=== PATIENT | male | born 1995 | race Caucasian/White ===

== ENCOUNTER 2016-10-22 15:46 | Emergency (ER) | payer SELFPAY ==
[2016-10-22 16:07] VITALS: BP 116/64; PULSE 66; RESP 14; TEMP 98.1; O2SAT 97
--- NOTE | 2016-10-22 16:46 | UCPHY ---
H & P Time Seen by Provider: 10/22/16 16:17 Patient Type: Established HPI/ROS: CHIEF COMPLAINT: Rash HISTORY OF PRESENT ILLNESS: 21-year-old male notes that over the last 3-4 days he has been developing a rash which started on his trunk and upper extremities. It is not itchy. He has not had shortness of breath, hives, nausea, fevers, or vomiting. He has not had a headache. He does not have a history of any prior skin conditions. He has been using [id number] lotion. He also reports he has been ill with some nasal congestion and upper respiratory infection for about 10 days. No fevers. REVIEW OF SYSTEMS: Aside from elements discussed in the HPI, a comprehensive 10-point review of systems was reviewed and is negative. PAST MEDICAL HISTORY: Tonsillectomy. Up-to-date on his immunizations. SOCIAL HISTORY: Nonsmoker. VITAL SIGNS: see nurse's notes. GENERAL: Well-developed, well-nourished, in no acute distress. HEENT: Normal, no discharge or icterus, moist mucous membranes. No eyelid swelling. No uvular swelling. No lip swelling. Neck: supple, FROM. LUNGS: Clear to auscultation bilaterally, no wheezes, rhonchi or rales. CARDIAC: Regular rate and rhythm, no rubs, murmurs or gallops. ABDOMEN: Soft, nontender, nondistended, bowel sounds normal. EXTREMITIES: No edema, FROM. NEURO: Alert and oriented, grossly nonfocal. SKIN: Warm and dry, no or urticaria. No pustules. No petechiae. Patient does have scattered macular papular rash which is discrete. 1 or 2 of the lesions have a slight pustular appearance. No vesicles. There are several areas where the papules are clustered but without central clearing. Smoking Status: Never smoked Constitutional: Initial Vital Signs Temperature (C) 36.7 C 10/22/16 16:02 Heart Rate 66 10/22/16 16:02 Respiratory Rate 14 10/22/16 16:02 Blood Pressure 116/64 10/22/16 16:02 O2 Sat (%) 97 10/22/16 16:02 O2 Delivery Mode Room Air Allergies/Adverse Reactions: clindamycin Allergy (Unknown, Verified 10/22/16 16:01) Unknown Home Medications: Medication Instructions Recorded predniSONE 40 mg PO DAILY #6 tab 10/22/16 Medical Decision Making ED Course/Re-evaluation: 21-year-old male presenting with a rash. Rash is not petechial, urticarial, or target like lesions. It is not itchy. It appears mostly to be either a widespread contact, viral exanthem, or varient eczema. Patient was placed on a short course of prednisone, and advised to use over-the- counter hydrocortisone on the larger grouped lesions and was discharged to follow up with Dermatology. Differential Diagnosis: Differential diagnosis of the patient's rash was considered including but not limited to allergic reaction, urticaria, viral exanthem, erythema multiforme, Sherman-Enrique syndrome, petechial rash, scarlatiniform rash, HUS, cellulitis, or purpuric rash. - Data Points Medications Given: Discontinued Medications Prednisone (Prednisone) 40 mg PO EDNOW ONE Stop: 10/22/16 16:49 Last Admin: 10/22/16 17:00 Dose: 40 mg Departure - Departure Disposition: Home, Routine, Self-Care Clinical Impression: Rash and nonspecific skin eruption, Possible viral exanthem, Possible eczema Condition: Good Instructions: Dermatitis (ED), Eczema (ED), Viral Exanthem (ED) Additional Instructions: The Exact cause of your rash is not known. I do not believe you need antibiotics and I do not believe you need treatment for a serious skin rash. You been given a prescription for prednisone. Please take this as directed for the next 3 days. Your 1st dose was provided in the emergency department. Please obtain Eucerin or Aveeno skin lotion. Try to keep her skin moist. You may also try topical 1% hydrocortisone cream on the areas of rash which are the most irritating. Follow up with your primary care physician on Sunday or Sunday or be seen by [facility] senior specialist. Return if your symptoms are worsening, especially if you develope shortness of breath, wheezing, sore throat, fever, or discharge from the rash. Referrals: Deb العلي PA [Primary Care Provider] - As per Instructions Michael Bustamante MD [Medical Doctor] - As per Instructions Prescriptions: predniSONE 40 mg PO DAILY #6 tab - PQRS PQRS Measurement: Not applicable
[2016-10-22] MEDS ORDERED: predniSONE 20 MG TAB PO ONE (16:48)
== END 2016-10-22 17:03 | disposition home or self-care (01) ==
LOC: CED 15:46
DX: R21 Rash and other nonspecific skin eruption (principal)
CPT/HCPCS: 99214-PO; G0463-PO

== ENCOUNTER 2017-01-09 01:45 | Emergency (ER) | payer OTHER ==
[2017-01-09 01:59] VITALS: BP 123/83; PULSE 66; RESP 16; TEMP 97.7; O2SAT 95
--- NOTE | 2017-01-09 02:18 | EDPHY ---
H & P Stated Complaint: bleeding from penis Time Seen by Provider: 01/09/17 02:04 HPI/ROS: Chief complaint: Penis bleeding HPI: 21-year-old male was having sexual intercourse when he felt a tearing sensation on the bottom of his penis near the glans. Patient noted a skin tear with bleeding. He has had persistent bleeding since that time despite applying direct pressure. He called the nurse was told to come in for further evaluation. Patient denies any pain in the mid shaft of his penis. Did not hear a cracking or did have not has not had any edema or swelling. No prior injuries. No discharge. States that the bleeding seems to stop since arriving in the hospital. ROS: 10 point Review of Systems is negative except as noted in the HPI. Past medical history: None Physical exam: General: Awake, alert, no acute distress Genital: This is a uncircumcised male. Foreskin easily retracts. There is a small skin tear at the base of his foreskin on the ventral shaft of his penis. There is no active bleeding. He has no tenderness or swelling on the penile shaft. The corporal cavernosa and corpora spongiosum appear normal. He has no swelling or edema. There is no ecchymosis. - Personal History Current Tetanus/Diphtheria Vaccine: Yes Current Tetanus Diphtheria and Acellular Pertussis (TDAP): Yes Tetanus Vaccine Date: 2015 - Medical/Surgical History Hx Asthma: No Hx Chronic Respiratory Disease: No Hx Diabetes: No Hx Cardiac Disease: No Hx Renal Disease: No Hx Cirrhosis: No Hx Alcoholism: No Hx HIV/AIDS: No Hx Splenectomy or Spleen Trauma: No Other PMH: Chucho Muller PCP. TET UTD. Flu vacc NONE. T+A - Social History Smoking Status: Never smoked Constitutional: Initial Vital Signs Temperature (C) 36.5 C 01/09/17 01:56 Heart Rate 66 01/09/17 01:56 Respiratory Rate 16 01/09/17 01:56 Blood Pressure 123/83 H 01/09/17 01:56 O2 Sat (%) 95 01/09/17 01:56 O2 Delivery Mode Room Air Allergies/Adverse Reactions: clindamycin Allergy (Unknown, Verified 01/09/17 01:55) Unknown Medical Decision Making ED Course/Re-evaluation: 21-year-old male with a tear to the base of his foreskin during sexual intercourse. There is no suturable laceration at this time. He is not currently having any further bleeding. I have instructed him that should bleeding recur he should apply direct pressure. He has been given care including instructions. Will be referred to Urology for follow-up for any concerns. Departure - Departure Disposition: Home, Routine, Self-Care Clinical Impression: Injury to penis, Laceration Condition: Good Instructions: Skin Tear (ED) Additional Instructions: Follow up with Urology in 3-4 days for continued to have pain, swelling, discoloration, or any other concerns. If the site begins to bleed again apply direct pressure for 20 minutes. If bleeding does not stop with direct pressure re-presented to the emergency department for further evaluation. Referrals: Deb العلي PA [Primary Care Provider] - As per Instructions Raul Grissom MD [Medical Doctor] - As per Instructions
== END 2017-01-09 02:20 | disposition home or self-care (01) ==
DX: S31.21XA Laceration without foreign body of penis, initial encounter (principal); X58.XXXA Exposure to other specified factors, initial encounter

== ENCOUNTER 2017-03-09 18:18 | Emergency (ER) | payer OTHER ==
[2017-03-09 18:27] VITALS: BP 110/57; PULSE 61; RESP 16; TEMP 97.9; O2SAT 97
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
== END 2017-03-09 18:42 | disposition home or self-care (01) ==
LOC: CED 18:18
DX: S16.1XXA Strain of muscle, fascia and tendon at neck level, initial encounter (principal); V89.2XXA Person injured in unspecified motor-vehicle accident, traffic, initial encounter; Y92.410 Unspecified street and highway as the place of occurrence of the external cause